=== PATIENT | male | born 2000 | race Two or more races ===

== ENCOUNTER → 2021-06-29 14:40 | Outpatient (BNVA) | payer OTHER, SELFPAY | PROVIDERS: PCP Internal Medicine; Visit Provider Physician Assistant ==

== ENCOUNTER 2021-07-27 10:00 | Outpatient (RCR) | payer OTHER, SELFPAY ==
--- NOTE | 2021-07-20 11:10 | MHC.PT.EP ---
[facility] [place] Office [place] Office [place] Office [address] Lamonte Zamora [address] [phone] F: [phone] F: [phone] F: [phone] F: [phone] Physical Therapy Plan of Care Date of Evaluation: Date of Surgery: Diagnosis: L ankle sprain Assessment: 21 y/o M referred to PT with L ankle sprain. On 06/26/21, he was playing basketball when he jumped and landed on uneven concrete resulting in inversion moment at ankle. At the same time as inverting his ankle, another person stepped on the medial side of his ankle. He felt instant pain, felt a pop and became cold. He was not able to put weight through ankle. He went to urgent care and reports he fractured talus and is WBAT in CAM boot. Currently limited with walking, stairs, sleeping, and inverting ankle without pain. 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 Educated pt on importance of CAM boot compliance with fair carryover. He is nervous about not being able to work. Examination shows decreased L ankle AROM, decreased L gastroc length, L ankle strength not tested due to recent fx and swelling. Recommend PT 2x/week for 4 weeks to address impairment, implement HEP, and optimize functional mobility. However he has a co-pay and would like to come 1x/week. Frequency and Duration: The patient will be seen 1x/week for 4 weeks Short Term Goals: 2 weeks 1. I with HEP 2. Improve ankle df by 10 degrees 3. Improve ankle pf by 10 degrees Mcc Goals: 4 weeks 1. I with HEp and self management of sx 2. Pt will ambulate > 60min without boot and pain < 2/10 3. pt will be able to squat w symmetrical WB and no early heel rise. Treatment Plan: Modalities to reduce pain, spasms and effusion. Manual therapy to restore motion and function. Therapeutic exercise to improve strength and flexibility. Neuromuscular re-education for posture and balance. Therapeutic activities to return to functional activities of daily living. Electronically signed by: Paulette Verma PT DPT Please sign and return to therapist. Thank you for your referral.
--- NOTE | 2021-08-30 10:43 | MHC.PT.DC ---
[facility] [place] Office [place] Office [place] Office [address] Lisette Zamora [address] [phone] F: [phone] F: [phone] F: [phone] F: [phone] Physical Therapy Discharge Report Diagnosis: L ankle sprain Date of Surgery: Date of Evaluation: 07/20/21 Date of Discharge: 08/30/21 Treatments to Date: 2 Cancellations to Date: 0 No Shows to Date: 0 Discharge Status: Patient Elected to Stop Discharge Summary: Pt called to cancel all visit following MD visit stating there is no fx. Electronically signed by: Paulette Verma PT Please sign and return to therapist. Thank you for your referral.
== END 2021-08-30 10:43 | disposition home or self-care (01) ==
LOC: HO.PT 10:00
PROVIDERS: Visit Provider Physician Assistant
DX: S93.401A Sprain of unspecified ligament of right ankle, initial encounter (principal)
CPT/HCPCS: 97110; 97161

== ENCOUNTER 2021-07-27 11:13 | Outpatient (REF) | payer OTHER, SELFPAY ==
--- NOTE | ~2021-07-27 | XR_ITS ---
EXAMINATION: XR ANKLE, LEFT CLINICAL INFORMATION: Left ankle pain COMPARISON: None TECHNIQUE: AP, lateral, and mortise views of the left ankle. FINDINGS: The bones and soft tissues are normal. No fracture. Alignment is anatomic. Joint spaces are maintained. No joint effusion. XR/XR ankle LT min 3V IMPRESSION: Normal left ankle.
== END 2021-07-27 11:14 | disposition home or self-care (01) ==
LOC: HO.HOSX 11:13
PROVIDERS: PCP Internal Medicine; Visit Provider Physician Assistant
DX: S93.402D Sprain of unspecified ligament of left ankle, subsequent encounter (principal)
CPT/HCPCS: 73610

== ENCOUNTER 2022-12-26 21:21 | Emergency (ER) | payer BC, SELFPAY ==
--- NOTE | ~2022-12-26 | CT_ITS ---
EXAMINATION: CT ABDOMEN AND PELVIS WITHOUT CONTRAST CLINICAL INFORMATION: Left flank pain COMPARISON: None TECHNIQUE: Multidetector volumetric imaging was performed from the superior aspect of the liver through the pubic symphysis. Sagittal and coronal reformatted images were obtained on the technologist's workstation. This CT examination was performed using dose optimization techniques as appropriate, variously including the following: *Automated exposure control *Adjustment of mA and/or kV according to patient size (this includes techniques or standardized protocols for targeted exams where dose is matched to indication/reason for exam; i.e. extremities or head) *Use of iterative reconstruction technique DLP: 550 mGy-cm FINDINGS: LUNG BASES: The visualized lung bases are unremarkable. LIVER, GALLBLADDER, AND BILIARY TREE: The liver is normal in size, shape, and attenuation. Subcentimeter hypodensity in the superior right lobe of the liver likely represents a cyst. No focal hepatic lesion or biliary ductal dilatation is present. The gallbladder is unremarkable with no evidence of radiopaque gallstones, gallbladder wall thickening, or obvious pericholecystic inflammatory changes. PANCREAS: Unremarkable. SPLEEN: Unremarkable. ADRENAL GLANDS: Unremarkable. KIDNEYS AND URETERS: The kidneys are normal in size, shape, and attenuation. No hydronephrosis, hydroureter, or calculi seen. No perinephric stranding. BLADDER: The urinary bladder is decompressed which limits evaluation. GASTROINTESTINAL TRACT: The small and large bowel are unremarkable. The appendix is unremarkable. ABDOMINAL WALL: No significant hernia is appreciated. LYMPH NODES: Normal. VASCULAR: Unremarkable. PELVIC VISCERA: Unremarkable. OSSEOUS STRUCTURES: No acute osseous abnormality. Mild degenerative changes of the sacroiliac joints. Several small thoracolumbar endplate Schmorl's nodes. No suspicious lytic or sclerotic osseous lesion. CT/CT abdomen pelvis wo IV con IMPRESSION: No nephroureterolithiasis. No acute abnormality in the abdomen or pelvis.
[2022-12-26 21:27] VITALS: BP 138/59; PULSE 63; RESP 20; TEMP 36.1; O2SAT 98; BMI 26.5
[2022-12-26 22:02] LABS: MANUAL DIFF FLAG NO
[2022-12-26 22:04] LABS: Basophils Percent Auto 0.4 % (0-2); Eosinophils Absolute Auto 0.2 X10*3/uL (0.0-0.4); Hematocrit 40.7 % (42.0-52.0); Hemoglobin 14.3 g/dl (14.0-18.0); Imm Gran Abs Auto 0.03 X10*3/uL (0.00-0.03); Imm Gran Pct Auto 0.3 % (0.0-0.4); Lymphocytes Absolute Auto 3.3 X10*3/uL (1.2-4.9); Mean Corpuscular HGB Conc 35.1 g/dl (31.0-36.0); Mean Corpuscular Hemoglobin 28.6 pg (27.0-33.0); Mean Corpuscular Volume 81.4 fL (80.0-98.0); Mean Platelet Volume 9.1 fL (9.4-12.4); Monocytes Absolute Auto 0.5 X10*3/uL (0.1-1.2); Monocytes Percent Auto 5.2 % (2-11); Neutrophils Absolute Auto 6.1 x10*3/uL (2.0-8.3); Neutrophils Percent Auto 60.1 % (45-73); Platelet Count 288 X10*3/uL (160-400); Red Cell Distribution Width 11.9 % (11.0-16.0); White Blood Count 10.2 X10*3/uL (4.8-10.8)
[2022-12-26 22:29] LABS: Anion Gap 14 (12-20); Blood Urea Nitrogen 15 mg/dL (9-16); Calcium 9.2 mg/dL (8.4-10.2); Chloride 105 mmol/L (96-108); Estimated Glomerular Filt Rate > 60; Glucose Random 105 mg/dL (60-115); Potassium 4.1 mmol/L (3.3-5.1); Sodium 140 mmol/L (135-145)
[2022-12-26 22:30] LABS: Carbon Dioxide 25 mmol/L (22-29)
--- NOTE | 2022-12-27 01:10 | ED.GENADULT ---
HPI - General Adult General Chief complaint: General Medical Stated complaint: side pain, no injury Time Seen by Provider: 12/27/22 01:10 Source: patient Mode of arrival: ambulatory Limitations: no limitations History of Present Illness HPI narrative: Patient with no significant past medical history 3 days ago noticed sudden onset of sharp pain in left flank area pain is constant gets worse in between no nausea no vomiting no hematuria no urinary complaints never had any kidney stones similar pain in the past Related Data Previous Rx's Medication Instructions Recorded ibuprofen 800 mg tablet 800 mg PO Q8H PRN pain 30 days #90 06/29/21 tabs ibuprofen 800 mg tablet 800 mg PO Q8H PRN pain 30 days #90 06/30/21 tabs cyclobenzaprine 10 mg tablet 10 mg PO Q8H #20 tabs 12/27/22 ibuprofen 600 mg tablet 600 mg PO Q6H PRN fever or pain 12/27/22 #30 tabs Allergies Allergy/AdvReac Type Severity Reaction Status Date / Time No Known Allergies Allergy Verified 12/26/22 21:28 Review of Systems Review of Systems: Yes all other systems are reviewed and are negative [facility] Family History Family History Father Colon cancer Social History Social History Advance Directives: No Current occupational status: employed Current occupation: rt handed Physical Exam ED Vital Signs: Vital Signs - 24 hr 12/26/22 21:27 12/27/22 01:33 12/27/22 01:45 Temperature 96.9 F 97.6 F Pulse Rate 63 57 62 Respiratory Rate 20 18 Blood Pressure 138/59 L 116/78 Pulse Oximetry 98 99 Oxygen Delivery Method Room Air Room Air Nasal Cannula with ETCO2 12/27/22 01:46 Temperature Pulse Rate Respiratory Rate 18 Blood Pressure Pulse Oximetry Oxygen Delivery Method BMI result Body Mass Index 26.5 Appearance: Alert. Oriented X3. No acute distress. ENT: Pharynx normal. Oral Mucosa moist Neck: Normal inspection. Neck supple. CVS: Normal heart rate and rhythm. Pulses normal. Respiratory: No respiratory distress. Equal air entry bilateral, no wheezing/rales/rhonchi Abdomen: Soft and nontender. Bowel sounds are present, no mass palpable, left CVA tenderness Skin: Skin warm and dry. Normal skin color. Normal skin turgor. Extremities: No lower extremity edema. No calf tenderness Neuro: Oriented X 3. Medications Administered Discontinued Medications Generic Name Dose Route Start Last Admin Trade Name Haim PRN Reason Stop Dose Admin Cyclobenzaprine HCl 10 mg 12/27/22 03:44 12/27/22 04:03 Cyclobenzaprine Hcl 10 Mg Tablet PO 12/27/22 03:45 10 mg ONCE ONE Administration Sodium Chloride 1,000 mls @ 999 mls/hr 12/27/22 01:16 12/27/22 02:47 Ns IV 12/27/22 02:16 Infused .Q1H1M ONE Infusion Ketorolac Tromethamine 30 mg 12/27/22 03:44 12/27/22 04:03 Ketorolac Tromethamine 30 Mg/Ml Vial IVPUSH 12/27/22 03:45 30 mg ONCE ONE Administration Morphine Sulfate 4 mg 12/27/22 01:16 12/27/22 01:46 Morphine Sulfate 4 Mg/Ml Cartridge IVPUSH 12/27/22 01:17 4 mg ONCE ONE Administration Protocol Ondansetron HCl 4 mg 12/27/22 01:16 12/27/22 01:46 Ondansetron Hcl 4 Mg/2 Ml Vial IVPUSH 12/27/22 01:17 4 mg ONCE ONE Administration Medical Decision Making Medical Decision Making [facility] Narrative: Patient's acute onset of left flank pain atraumatic workup is negative for kidney stone urine is normal labs are stable likely musculoskeletal pain will discharge patient home on ibuprofen and Flexeril Differential Diagnosis UTI/kidney stone/musculoskeletal pain Lab Data [facility] Lab Attestation statement: I reviewed the patient's lab results. 12/26/22 21:59 12/26/22 21:59 Labs: Lab Results 12/26/22 12/26/22 12/27/22 Range/Units 21:59 21:59 01:29 WBC 10.2 (4.8-10.8) X10*3/uL RBC 5.00 (4.60-5.80) X10*6/uL Hgb 14.3 (14.0-18.0) g/dl Hct 40.7 L (42.0-52.0) % MCV 81.4 (80.0-98.0) fL MCH 28.6 (27.0-33.0) pg MCHC 35.1 (31.0-36.0) g/dl RDW 11.9 (11.0-16.0) % Plt Count 288 (160-400) X10*3/uL MPV 9.1 L (9.4-12.4) fL Immature Gran % (Auto) 0.3 (0.0-0.4) % Neut % (Auto) 60.1 (45-73) % Lymph % (Auto) 32.0 (20-40) % Hooker % (Auto) 5.2 (2-11) % Eos % (Auto) 2.0 (0-4) % Baso % (Auto) 0.4 (0-2) % Lymph # (Auto) 3.3 (1.2-4.9) X10*3/uL Hooker # (Auto) 0.5 (0.1-1.2) X10*3/uL Eos # (Auto) 0.2 (0.0-0.4) X10*3/uL Baso # (Auto) 0.0 (0.0-0.2) X10*3/uL Abs Immat Gran (auto) 0.03 (0.00-0.03) X10*3/uL Absolute Neuts (auto) 6.1 (2.0-8.3) x10*3/uL Absolute Nucleated RBC 0.000 (0.0-0.012) X10*3/uL Nucleated RBC % (auto) 0.0 (0.0-0.2) /100WBC Sodium 140 (135-145) mmol/L Potassium 4.1 (3.3-5.1) mmol/L Chloride 105 (96-108) mmol/L Carbon Dioxide 25 (22-29) mmol/L Anion Gap 14 (12-20) BUN 15 (9-16) mg/dL Creatinine 0.84 (0.5-1.4) mg/dL Estim Creat Clear Calc 140.0 Estimated GFR > 60 Random Glucose 105 (60-115) mg/dL Calcium 9.2 (8.4-10.2) mg/dL Urine Color Yellow Urine Appearance Clear Urine pH 6.0 (5.0-9.0) Ur Specific [place] >= 1.030 H (1.005-1.025) Urine Protein Negative (Neg-Trace) mg/dL Urine Glucose (UA) Negative (Negative) mg/dL Urine Ketones Negative (Negative) mg/dL Urine Blood Negative (Negative) Urine Nitrite Negative (Negative) Ur Leukocyte Esterase Negative (Negative) Urine RBC 0-2 (0-2) /HPF Urine WBC 0-5 (0-5) /HPF Ur Squamous Epith Cells 0-2 (0-2) /HPF Urine Bacteria None Seen (None Seen) Hyaline Casts 0-2 (0-2) /LPF Discharge Plan Discharge Clinical Impression: Back pain Patient Disposition: Home, Self-Care Instructions: Back Pain (ED) Additional Instructions: Drink plenty of fluids Your CT scan is negative for kidney stone lab work is normal Pain medication, muscle relaxant as advised Prescriptions: New cyclobenzaprine 10 mg tablet 10 mg PO Q8H Qty: 20 0RF ibuprofen 600 mg tablet 600 mg PO Q6H PRN (Reason: fever or pain) Qty: 30 0RF No Action ibuprofen 800 mg tablet 800 mg PO Q8H PRN (Reason: pain) 30 Days Qty: 90 3RF ibuprofen 800 mg tablet 800 mg PO Q8H PRN (Reason: pain) 30 Days Qty: 90 3RF
[2022-12-27 01:33] VITALS: BP 116/78; PULSE 57; RESP 18; TEMP 36.4; O2SAT 99
[2022-12-27 01:34] LABS: Appearance Urine Clear; Color Urine Yellow; Glucose Urine UA Negative (Negative); Leukocyte Esterase Urine Negative (Negative); Nitrite Urine Negative (Negative); Specific Gravity - Urine >= 1.030 (1.005-1.025); Urine Blood Negative (Negative); Urine Ketones Negative (Negative); Urine Protein Negative (Neg-Trace)
[2022-12-27 01:39] LABS: Bacteria Urine None Seen (None Seen); Hyaline Casts Urine 0-2 /LPF (0-2); RBC Urine 0-2 /HPF (0-2); Squamous Epithelial Cell Urine 0-2 /HPF (0-2); WBC Urine 0-5 /HPF (0-5)
[2022-12-27 01:45] VITALS: PULSE 62
[2022-12-27 01:46] VITALS: RESP 18
[2022-12-27] MEDS: ondansetron HCL 4 MG/2 ML VIAL IVPUSH (01:46)
[2022-12-27] MEDS: 0.9 % Sodium Chloride 1,000 ML 999 ML IV (01:46)
[2022-12-27] MEDS: Morphine Sulfate 4 MG/ML CARTRIDGE IVPUSH (01:46)
[2022-12-27] MEDS: Cyclobenzaprine HCl 10 MG TABLET PO (04:03)
[2022-12-27] MEDS: Ketorolac Tromethamine 30 MG/ML VIAL IVPUSH (04:03)
== END 2022-12-27 05:15 | disposition home or self-care (01) ==
PROVIDERS: Emergency Provider Internal Medicine; PCP Internal Medicine
DX: R10.9 Unspecified abdominal pain (principal)
CPT/HCPCS: 36415; 74176; 80048; 81001; 85025; 96361; 96374; 96375; 99284; J1885; J2270; J2405